=== PATIENT | male | born 1990 | race Caucasian/White ===

== ENCOUNTER 2022-01-13 09:49 | Emergency (ER) | payer OTHER ==
[2022-01-13 10:51] LABS: BASOPHIL 0.2 % (0-2); EOSINOPHIL 1.2 % (0-5); HCT 42.9 % (42.0-52.0); HGB 15.5 g/dl (13.2-18.0); LYMPHOCYTE 10.6 % (15-48); MCH 33.3 pg (25.0-31.0); MCHC 36.1 g/dL (32.0-36.0); MCV 92.1 fL (78.0-100.0); MONOCYTE 3.5 % (0-12); MPV 10.5 fL (6.0-9.5); NEUTROPHIL 84.2 % (41-80); NRBC 0; PLT 200 K/uL (150-400); RBC 4.66 M/uL (4.70-6.00); RDW 12.1 % (11.5-14.0); WBC 9.3 K/uL (4.0-10.5)
[2022-01-13 11:27] LABS: ALBUMIN 4.1 g/dL (3.4-5.0); BILIRUBIN - TOTAL 0.5 mg/dL (0.2-1.0); BUN/CREAT RATIO (CALC) 16.9 RATIO; CREATININE 0.77 mg/dL (0.67-1.17); POTASSIUM 3.6 mmol/L (3.5-5.1); TOTAL PROTEIN 7.1 g/dL (6.4-8.2)
[2022-01-13] MEDS ORDERED: CARAFATE1 GM PO (11:42)
[2022-01-13] MEDS ORDERED: PEPCID AC20 MG PO (11:42)
[2022-01-13] MEDS ORDERED: PROTONIX40 MG PO (11:42)
== END 2022-01-13 11:53 | disposition home or self-care (01) ==
LOC: FER 09:49
PROVIDERS: Emergency Medicine
DX: K27.9 Peptic ulcer, site unspecified, unspecified as acute or chronic, without hemorrhage or perforation (principal); Z88.1 Allergy status to other antibiotic agents
CPT/HCPCS: 36415; 74018; 80053; 85025; 93005